=== PATIENT | male | born 1980 | race Hispanic/Latino ===

== ENCOUNTER 2020-03-17 15:38 | Inpatient (IN) | payer SELFPAY ==
[~2020-03-17] VITALS: Ht 170.2 cm; Wt 91.3 kg
--- NOTE | 2020-03-17 15:56 | Emergency Department Note ---
History of Present Illnes History of Present Illness Chief Complaint: Abdominal Complaints History of Present Illness This is a 40 year old male . Historian: Patient Arrival Mode: Car Recruiting Administrator Required: No Onset (how long ago): day(s) Radiation: Reports non-radiation Severity: mild Onset quality: sudden Duration (how long): day(s) Timing of current episode: constant Context: Denies recent illness Relieving factors: none Exacerbating factors: none Associated symptoms: Reports denies other symptoms (HERNANDO YANCEY DO) Past Medical/Family History Physician Review I have reviewed the patient's past medical and family history. Any updates have been documented here. (HERNANDO YANCEY, ) Past Medical History Recent Fever: No Clinical Suspicion of Infectio: No New/Unexplained Change in Ment: No Past Medical History: None Past Surgical History: None (HERNANDO YANCEY DO) Social History Smoking Cessation: Former smoker Counseling Performed: No Alcohol Use: Social Physically hurt or threatened: No (HERNANDO YANCEY DO) Review of Systems Review of Systems Constitutional: Reports no symptoms EENTM: Reports no symptoms Cardiovascular: Reports no symptoms Respiratory: Reports no symptoms Gastrointestinal: Reports as per HPI, Reports abdominal pain Genitourinary: Reports no symptoms Musculoskeletal: Reports no symptoms Integumentary: Reports no symptoms Neurological: Reports no symptoms Psychological: Reports no symptoms Endocrine: Reports no symptoms Hematological/Lymphatic: Reports no symptoms (HERNANDO YANCEY DO) Physical Exam Related Data Allergies: Coded Allergies: No Known Allergies (Unverified , 03/17/20) Triage Vital Signs Vital Signs Date Time Temp Pulse Resp B/P (MAP) Pulse Ox O2 Delivery O2 Flow Rate FiO2 03/17/20 15:46 98.8 110 20 131/82 98 Room Air Vital signs reviewed: Yes (HERNANDO YANCEY, ) Physical Exam CONSTITUTIONAL Constitutional: Present well-developed, Present well-nourished HENT HENT: Present normocephalic, Present atraumatic, Present oropharynx clear/ moist, Present nose normal HENT L/R: Present left ext ear normal, Present right ext ear normal EYES Eyes: Reports PERRL, Reports conjunctivae normal NECK Neck: Present ROM normal PULMONARY Pulmonary: Present effort normal, Present breath sounds normal CARDIOVASCULAR Cardiovascular: Present regular rhythm, Present heart sounds normal, Present capillary refill normal, Present normal rate GASTROINTESTINAL Abdominal: Present soft, Present bowel sounds normal, Present tender GENITOURINARY Genitourinary: Present exam deferred SKIN Skin: Present warm, Present dry MUSCULOSKELETAL Musculoskeletal: Present ROM normal NEUROLOGICAL Neurological: Present alert, Present oriented x 3, Present no gross motor or sensory deficits PSYCHOLOGICAL Psychological: Present mood/affect normal, Present judgement normal (HERNANDO YANCEY, ) Results Laboratory Lab results reviewed: Yes (HERNANDO YANCEY, ) Imaging Imaging results reviewed: Yes (HERNANDO YANCEY, ) Imaging results reviewed: Yes Impressions ct abd/pelvis IMPRESSION: 1. Enlarged appendix measuring 1 cm with adjacent inflammatory change. Findings consistent with early acute appendicitis. No evidence of perforation or abscess. 2. Patchy opacities at the lung bases could be due to atelectasis or possibly developing pneumonia in the appropriate clinical context. Signed by: Dr. True Carlson M.D. on 03/17/2020 5:50 PM Dictated By: TRUE CARLSON MD, MD (KEI NAVA MD) Assessment & Plan Medical Decision Making MDM 40 yo M arrived to the ED with complaints of RLQ pain- sign out given to Dr. Nava to f/u CT AP and dispo of pt (HERNANDO YANCEY DO) MDM pt with appendicitis and likely covid 19 viral pneumonia. i spoke with dr de la fuente, dr ibrahim, dr delgado, dr vickie dorsey. admit to covid oui inpatient bed (KEI NAVA MD) Assessment & Plan Final Impression: (1) Appendicitis (2) Suspected 2019 novel coronavirus infection (3) Viral pneumonia (KEI NAVA MD) Depart Disposition: ADMITTED Last Vital Signs Date Time Temp Pulse Resp B/P (MAP) Pulse Ox O2 Delivery O2 Flow Rate FiO2 03/17/20 15:46 98.8 110 20 131/82 98 Room Air (HERNANDO YANCEY, ) Home Meds Reported Medications Acetaminophen With Codeine (TYLENOL WITH CODEINE #3 TABLET) 1 Each Tablet, 300 MG PO Q4HR PRN for Mild Pain (1-3) or Fever>100.8, TAB 03/18/20 Ampicillin Sodium (AMPICILLIN SODIUM) 1 Gm Vial, 0.5 GM PO Q8H, VIAL 03/18/20 [immunity] No Conflict Check, 1 TAB.CHEW PO DAILY 03/17/20 Cholecalciferol (Vitamin D3) (Vitamin D3) 25 Mcg Tab.chew, 1 CAP PO DAILY 03/17/20 Echinacea (ECHINACEA HERB) 380 Mg Capsule, 760 MG PO DAILY 03/17/20 HERNANDO YANCEY DO Mar 17, 2020 15:55 KEI NAVA MD Mar 17, 2020 18:33
[2020-03-17 16:13] LABS: BASOPHILS % 0.3 % (0.0-1.0); EOSINOPHILS # (AUTO) 0.1 (0.0-0.4); EOSINOPHILS % 1.2 % (0.0-6.0); HEMATOCRIT 42.4 % (38.2-49.6); HEMOGLOBIN 14.8 g/dL (14.0-18.0); LYMPHOCYTES # (AUTO) 2.1 (1.0-3.2); MEAN CORPUSCULAR HGB CONC 34.9 g/dL (31-35); MEAN CORPUSCULAR VOLUME 88.7 fL (81-99); MONOCYTES # (AUTO) 0.8 (0.2-0.8); MONOCYTES % 7.2 % (4.4-11.3); NEUTROPHILS # (AUTO) 8.1 (2.1-6.9); NEUTROPHILS % 71.9 % (38.7-80.0); PLATELET COUNT 222 x10e3/uL (140-360); RED BLOOD COUNT 4.78 x10e6/uL (4.3-5.7); RED CELL DISTRIBUTION WIDTH 13.2 % (11.7-14.4)
[2020-03-17] MEDS ORDERED: DIATRIZOATE MEGL/DIATRIZOA SOD 30 ML BTL PO ONE (16:13)
[2020-03-17] MEDS ORDERED: SODIUM CHLORIDE 0.9% 50ML 50 ML ONE (16:13)
[2020-03-17] MEDS ORDERED: IOPAMIDOL 370 MG/ML 200 ML INFUS..BTL INJ ONE (16:13)
[2020-03-17 16:16] LABS: CLARITY,URINE CLEAR (CLEAR); COLOR,URINE YELLOW (YELLOW)
[2020-03-17 16:17] LABS: BILIRUBIN,URINE SMALL (NEGATIVE); KETONES,URINE TRACE (NEGATIVE); LEUKOCYTE ESTERASE ,URINE NEGATIVE (NEGATIVE); NITRITE,URINE NEGATIVE (NEGATIVE); PROTEIN,URINE DIPSTICK TRACE (NEGATIVE); URINE UROBILINOGEN 0.2 mg/dL (0.2 - 1)
[2020-03-17 16:27] LABS: BACTERIA,URINE RARE /HPF; EPITHELIAL CELLS,URINE FEW /LPF
[2020-03-17 16:28] LABS: ALANINE AMINOTRANSFERASE 57 IU/L (0-55); ALBUMIN 3.8 g/dL (3.5-5.0); ALKALINE PHOSPHATASE 64 IU/L (40-150); ANION GAP 10.7 mmol/L (8-16); BLOOD UREA NITROGEN 12 mg/dL (7-26); BUN/CREATININE RATIO 14 (6-25); CALCIUM 8.6 mg/dL (8.4-10.2); CARBON DIOXIDE 25 mmol/L (22-29); CHLORIDE 105 mmol/L (98-107); CREATININE, SERUM 0.84 mg/dL (0.72-1.25); EST GLOMERULAR FILTRATION RATE > 60 ML/MIN (60-); GLUCOSE 88 mg/dL (74-118); POTASSIUM 3.7 mmol/L (3.5-5.1); SODIUM 137 mmol/L (136-145)
[2020-03-17] MEDS ORDERED: KETOROLAC TROMETHAMINE 30 MG/ML VIAL IV STA (17:15)
--- NOTE | 2020-03-17 17:53 | Diagnostic Imaging Report ---
EXAM: CT Abdomen and Pelvis WITH contrast INDICATION: Right-sided abdominal pain. Decreased range of motion. Decreased appetite. Diarrhea. COMPARISON: None. TECHNIQUE: Abdomen and pelvis were scanned utilizing a multidetector helical scanner from the lung base to the pubic symphysis after administration of IV contrast. Coronal and sagittal reformations were obtained. Routine protocol was performed. Scan was performed when during portal venous phase. IV CONTRAST: 100 mL of Isovue 370 ORAL CONTRAST: None COMPLICATIONS: None RADIATION DOSE: Total DLP: 582 mGy*cm Estimated effective dose: (DLP x 0.015 x size factor) mSv CTDIvol has been reviewed. It is below the limits set by the Radiation Protocol Committee (RPC). Dose modulation, iterative reconstruction, and/or weight based adjustment of the mA/kV was utilized to reduce the radiation dose to as low as reasonably achievable. FINDINGS: LINES and TUBES: None. LOWER THORAX: Patchy opacities at the lung bases could be due to atelectasis or possibly developing pneumonia in the appropriate clinical context. HEPATOBILIARY: No focal hepatic lesions. No biliary ductal dilation. GALLBLADDER: No radio-opaque stones or sludge. No wall thickening. SPLEEN: No splenomegaly. PANCREAS: No focal masses or ductal dilatation. ADRENALS: No adrenal nodules KIDNEYS/URETERS: Kidneys enhance symmetrically. No hydronephrosis. No cystic or solid mass lesions. No stones. GI TRACT: No abnormal distention, wall thickening, or evidence of bowel obstruction. Scattered diverticulosis without evidence of diverticulitis. Enlarged appendix measuring 1 cm with adjacent inflammatory change. Findings consistent with early acute appendicitis. No evidence of perforation or abscess. PELVIC ORGANS/BLADDER: Unremarkable. LYMPH NODES: No lymphadenopathy. VESSELS: Unremarkable. PERITONEUM / RETROPERITONEUM: No free air or fluid. BONES: Unremarkable. SOFT TISSUES: Unremarkable. IMPRESSION: 1. Enlarged appendix measuring 1 cm with adjacent inflammatory change. Findings consistent with early acute appendicitis. No evidence of perforation or abscess. 2. Patchy opacities at the lung bases could be due to atelectasis or possibly developing pneumonia in the appropriate clinical context. Signed by: Dr. True Carlson M.D. on 03/17/2020 5:50 PM
[2020-03-17] MEDS ORDERED: METRONIDAZOLE 500MG/NS 100ML 100 ML IV SCH (18:30)
[2020-03-17] MEDS ORDERED: SODIUM CHLORIDE 0.9% 1000ML 1,000 ML IV SCH (18:30)
[2020-03-17] MEDS ORDERED: ONDANSETRON HCL INJ 2MG/ML 2ML 2 MG/ML VIAL IV PRN (19:00)
[2020-03-17] MEDS ORDERED: MORPHINE SULFATE INJ 4 MG/ML INJ 1ML IV PRN (19:00)
[2020-03-17] MEDS: SODIUM CHLORIDE 0.9% 1000ML 1,000 ML IV SCH (19:04)
--- NOTE | 2020-03-17 19:04 | NUR ---
report given to Davey COPELAND
[2020-03-17] MEDS ORDERED: CEFTRIAXONE SOD 2 GM/NS 100 ML 100 ML IV SCH (19:30)
--- NOTE | 2020-03-17 20:51 | Consultation ---
DATE OF CONSULTATION: Pulmonary Critical Care Consultation CHIEF COMPLAINT: Right lower quadrant pain for the past 24 hours and history of positive COVID test. HISTORY OF PRESENT ILLNESS: The patient is a 40-year-old man. In late January, he had some cough and fevers. He went to his doctor and had a test for COVID that was positive on February 28. He also received some antibiotics and a steroid shot. His symptoms subsequently resolved and he had a negative COVID tests on the 10 of March. Yesterday, he started having abdominal pain. It is subsequently localized to the right lower quadrant. He had some fevers. He came to the emergency department and had a CT scan, that showed acute appendicitis. PAST MEDICAL HISTORY: 1. History of COVID infection, that has resolved as noted above. 2. No prior respiratory problems or asthma. 3. No prior cardiac history. 4. No history of diabetes. PAST SURGICAL HISTORY: Noncontributory. ALLERGIES: THE PATIENT HAS NO KNOWN DRUG ALLERGIES. FAMILY HISTORY: The patient is no significant family history. REVIEW OF SYSTEMS: There is no headache. He has no chest pain. He is not having any neck pain. There is no shortness of breath or cough. He does have some abdominal pain, localized to the right lower quadrant. There is no vomiting. He has no nausea. He has no diarrhea. PHYSICAL EXAMINATION: VITAL SIGNS: Stable. The blood pressure is 126/92, pulse is 106, and this patient is afebrile. HEENT: Shows no facial swelling or erythema. CARDIAC: Reveals regular rate and rhythm with normal S1, S2. LUNGS: Auscultation of lungs reveals clear breath sounds bilaterally. There is no wheezing. ABDOMEN: Soft. There is some right lower quadrant tenderness. There is no rebound. There is some guarding. EXTREMITIES: Shows no leg edema or calf tenderness. There is no cyanosis or clubbing. SKIN: Shows no rashes. LABORATORY DATA: White blood cell count is 11.1 and hemoglobin is 14.8. Platelet count is 222. The BUN to creatinine ratio is normal. The other electrolytes are normal. ALT is mildly elevated at 57. Urinalysis; shows 6 to 10 white blood cells. RADIOGRAPHIC DATA: CT scan of the abdomen and pelvis shows an enlarged appendix measuring 1 cm with adjacent inflammatory changes. These findings are consistent with early appendicitis. There are some patchy opacities at the lung bases. IMPRESSION: 1. Acute appendicitis. 2. Prior COVID pneumonia, that has resolved. PLAN: 1. The patient had COVID with symptoms that started 3-1/2 weeks ago. His symptoms were resolved over 7 days ago. Clinically, his COVID has resolved and he is not infectious at this time. 2. Changes on x-ray from COVID pneumonia as well as any other pneumonia can take weeks to resolve, and do not by themselves indicate active infection. 3. The patient should proceed with appendectomy. Staff should use standard precautions with masks and [place] just as in any other patient. 4. IV antibiotics. 5. IV fluids. Yang Hedrick MD [facility]/[place] /[id number]
[2020-03-17 21:25] VITALS: BP 116/92
[2020-03-17 22:28] VITALS: BP 116/92
[2020-03-17 22:32] VITALS: BP 116/92
[2020-03-17] MEDS ORDERED: ECHINACEA HERB380 MG PO (22:40)
[2020-03-17] MEDS ORDERED: VITAMIN D325 MCG PO (22:40)
[2020-03-17] MEDS ORDERED: [UNRECOGNIZED DRUG - OTHER] PO (22:40)
--- NOTE | 2020-03-17 22:54 | NUR ---
infectious disease progress note consultation Right lower quadrant pain for the past 24 hours and history of positive COVID test. ABDOMINAL PAIN HISTORY OF PRESENT ILLNESS: The patient is a 40-year-old man. In late January, he had some cough and fevers. He went to his doctor and had a test for COVID that was positive on February 28. He also received some antibiotics and a steroid shot. His symptoms subsequently resolved and he had a negative COVID tests on the 10 of March. PATIENT WITH NO SHORTNESS OF BREATH Yesterday, he started having abdominal pain. It is subsequently localized to the right lower quadrant. He had some fevers. He came to the emergency department and had a CT scan, that showed acute appendicitis. PAST MEDICAL HISTORY: 1. History of COVID infection, that has resolved as noted above. 2. No prior respiratory problems or asthma. 3. No prior cardiac history. 4. No history of diabetes. PAST SURGICAL HISTORY: Noncontributory. ALLERGIES: THE PATIENT HAS NO KNOWN DRUG ALLERGIES. FAMILY HISTORY: The patient is no significant family history. REVIEW OF SYSTEMS: There is no headache. He has no chest pain. He is not having any neck pain. There is no shortness of breath or cough. He does have some abdominal pain, localized to the right lower quadrant. There is no vomiting. He has no nausea. He has no diarrhea. PHYSICAL EXAMINATION: PATIENT IS ALERT ORIENTED DOES NOT IN ACUTE DISTRESS VITAL SIGNS: Stable. The blood pressure is 126/92, pulse is 106, and this patient is afebrile. HEENT: Shows no facial swelling or erythema. CARDIAC: Reveals regular rate and rhythm with normal S1, S2. LUNGS: Auscultation of lungs reveals clear breath sounds bilaterally. There is no wheezing. ABDOMEN: Soft. There is some right lower quadrant tenderness. There is no rebound. There is some guarding. EXTREMITIES: Shows no leg edema or calf tenderness. There is no cyanosis or clubbing. SKIN: Shows no rashes. LABORATORY DATA: White blood cell count is 11.1 and hemoglobin is 14.8. Platelet count is 222. The BUN to creatinine ratio is normal. The other electrolytes are normal. ALT is mildly elevated at 57. Urinalysis; shows 6 to 10 white blood cells. RADIOGRAPHIC DATA: CT scan of the abdomen and pelvis shows an enlarged appendix measuring 1 cm with adjacent inflammatory changes. These findings are consistent with early appendicitis. [facility] MOUTH COVID 19 POSITIVE IN february 28 PATIENT IS NOT INFECTIOUS ANYMORE PATIENT COULD BE TRANSFERRED TO A REGULAR FLOOR WITH THE MASK ON IF SURGERY IS PLANNED IS OKAY TO PROCEED WITH SURGERY ACCORDING TO MOST RECENT [facility]bc RECOMMENDATIONS ON THIS PATIENT THE LATTER INFECTIOUS AFTER 10 DAYS
[2020-03-17] MEDS: PIPER-TAZ 3.375 GM 50 ML IV SCH (23:01)
[2020-03-18 00:35] VITALS: BP 119/86
[2020-03-18] MEDS: SODIUM CHLORIDE 0.9% 1000ML 1,000 ML IV SCH ×2 (04:09→14:02)
[2020-03-18 05:00] VITALS: BP 119/90
[2020-03-18 05:48] LABS: BASOPHILS % 0.3 % (0.0-1.0); EOSINOPHILS # (AUTO) 0.1 (0.0-0.4); EOSINOPHILS % 1.5 % (0.0-6.0); HEMATOCRIT 37.3 % (38.2-49.6); HEMOGLOBIN 13.3 g/dL (14.0-18.0); LYMPHOCYTES # (AUTO) 1.7 (1.0-3.2); LYMPHOCYTES % 22.9 % (18.0-39.1); MEAN CORPUSCULAR HGB CONC 35.7 g/dL (31-35); MEAN CORPUSCULAR VOLUME 92.6 fL (81-99); MONOCYTES # (AUTO) 0.6 (0.2-0.8); NEUTROPHILS # (AUTO) 4.9 (2.1-6.9); PLATELET COUNT 151 x10e3/uL (140-360); RED BLOOD COUNT 4.03 x10e6/uL (4.3-5.7); RED CELL DISTRIBUTION WIDTH 13.3 % (11.7-14.4)
[2020-03-18 06:13] LABS: ALANINE AMINOTRANSFERASE 63 IU/L (0-55); ALBUMIN 3.2 g/dL (3.5-5.0); ALBUMIN/GLOBULIN RATIO 0.9 (0.8-2.0); ALKALINE PHOSPHATASE 58 IU/L (40-150); ANION GAP 12.8 mmol/L (8-16); BLOOD UREA NITROGEN 11 mg/dL (7-26); BUN/CREATININE RATIO 14 (6-25); CARBON DIOXIDE 24 mmol/L (22-29); CHLORIDE 106 mmol/L (98-107); CREATININE, SERUM 0.81 mg/dL (0.72-1.25); EST GLOMERULAR FILTRATION RATE > 60 ML/MIN (60-); GLUCOSE 85 mg/dL (74-118); POTASSIUM 3.8 mmol/L (3.5-5.1); SODIUM 139 mmol/L (136-145)
[2020-03-18] MEDS: PIPER-TAZ 3.375 GM 50 ML IV SCH ×2 (06:16→14:02)
[2020-03-18 08:28] VITALS: BP 119/87
--- NOTE | 2020-03-18 08:43 | Diagnostic Imaging Report ---
ADDENDUM #1 Please see below. Signed by: Kenn Cota MD on 03/18/2020 9:01 AM ORIGINAL REPORT X-ray chest AP portable History: Appendicitis Comparison: None Findings: Central airways unremarkable. Heart size normal. Mediastinal contours unremarkable. No pleural effusion. No pneumothorax. Lung ramachandran show no focal disease. Visualized skeletal structures and upper abdomen unremarkable. Impression: No acute abnormality on this exam. Signed by: Kenn Cota MD on 03/18/2020 8:40 AM
--- NOTE | 2020-03-18 09:14 | Consultation ---
DATE OF CONSULTATION: REASON FOR CONSULTATION: Acute appendicitis. HISTORY OF PRESENT ILLNESS: The patient is a 40-year-old pleasant male who developed right lower quadrant pain approximately 2 days ago, associated with nausea. No vomiting. No fever. The pain persisted for the last 2 days and they got worse that is the reason he came to the emergency room. The patient was diagnosed with COVID in late January and was treated with what appears to be a Z-Lul and a steroid check by his primary care physician. His symptoms resolved then he had negative COVID test on March 10. However, upon admission to the hospital, his COVID test is positive now. The patient denies any respiratory symptoms, any shortness of breath, difficulty with breathing. He does have slight cough. His is sick at home with COVID. His daughter has not been tested. CT scan of the abdomen performed during this hospitalization reveals acute appendicitis. The patient has been treated with overnight antibiotics. He still has some right lower quadrant tenderness. PAST MEDICAL HISTORY: Remarkable for no previous surgery. ALLERGIES: HE HAS NO KNOWN ALLERGIES. PHYSICAL EXAMINATION: GENERAL: Reveals a 40-year-old male in no acute distress. Does complain of some right lower quadrant tenderness. He is awake and alert. HEAD, EYES, EARS, NOSE, and THROAT: Reveals no acute process. LUNGS: Clear. HEART: Reveals regular sinus rhythm. ABDOMEN: Soft with tenderness to deep palpation in the right lower quadrant. At this point, there is no rebound. LABORATORY DATA: Reveal on admission, white count of 11 and subsequently today is 7.5. Electrolytes are normal. Renal function is normal. Chest x-ray has been done and result is pending. ASSESSMENT: Acute appendicitis, positive COVID test. Clinically, the patient is stable. At this point from a pulmonary point of view, he has been evaluated by Pulmonary and feels that it is appropriate at this point to proceed with appendectomy. I have discussed the surgery as well as the alternative treatment of intravenous antibiotics. He is aware of the higher likelihood of recurrence and follow non operative surgical treatment of appendicitis. Of note is the fact that this patient apparently completed today a course of Z-Lul. He still has tenderness in the right lower quadrant. The patient wishes to proceed with appendectomy. He is aware of the potential risks. Dequan J Chris, MD [facility]/[place] /[id number]
[2020-03-18 09:37] VITALS: BP 119/87
[2020-03-18] MEDS ORDERED: ACETAMINOPHEN 325 MG TAB PO PRN (11:45)
[2020-03-18 11:54] VITALS: BP 109/91
[2020-03-18] MEDS ORDERED: BUPIVACAINE 0.25% 30ML SDV INJ ONE (12:31)
[2020-03-18] MEDS ORDERED: ONDANSETRON HCL INJ 2MG/ML 2ML 2 MG/ML VIAL IV PRN (13:15)
[2020-03-18] MEDS ORDERED: HYDROCODONE/APAP 7.5MG-325MG 1 EA TAB PO PRN (13:15)
--- NOTE | 2020-03-18 13:35 | NUR ---
GAVE PACKET OF INFORMATION WITH COMMUNITY [employer]OURCES FOR ASSISTANCE WITH LOW TO NO INCOME TO PATIENT. RESOURCES THAT PATIENT MAY BE ABLE TO FOLLOW UP UPON DISCHARGE. PT EDUCATED ON EACH RESOURCE AND UNDERSTANDING HOW TO FOLLOW UP TO SEE IF QUALIFIED FOR EACH RESOURCE.
--- NOTE | 2020-03-18 13:45 | Operative Report ---
DATE OF PROCEDURE: 03/18/2020 SURGEON: Dequan Perez MD PREOPERATIVE DIAGNOSES: Acute appendicitis, positive coronavirus disease infection. POSTOPERATIVE DIAGNOSES: Acute appendicitis, positive coronavirus disease infection. PROCEDURE PERFORMED: Laparoscopic appendectomy. CRYSTALLOGRAPHER: DONA Carvalho. ESTIMATED BLOOD LOSS: Minimal. DRAINS: None. COMPLICATIONS: None. INDICATION AND FINDINGS: The patient is a 40-year-old male admitted because of right lower quadrant pain for 48 hours duration. Patient had been diagnosed with COVID in the past, was treated. At this point, he was asymptomatic except for minor cough. His PUI COVID test was positive. A CT scan revealed changes consistent with acute appendicitis. The intraoperative findings were acute appendicitis. Preoperatively, the patient and I had a long discussion about his condition, his risks, his alternative treatment such as nonoperative versus operative, he elected to have laparoscopic appendectomy. Preoperatively, he was evaluated by both Pulmonary and Infectious Disease, who agree with the plan for laparoscopic cholecystectomy. DESCRIPTION OF PROCEDURE: With the patient lying on the operative table in the supine position after administration of general anesthesia, he was prepped and draped for laparoscopic appendectomy. Adequate precautions were taken according to the [address] protocol. The procedure was begun by establishing the pneumoperitoneum in the umbilical site after stab wound was made in that location and a saline drop test was performed and pneumoperitoneum was insufflated to 15 mm of pressure and then the 12 trocar placed in that location under direct vision with the camera. We placed a right upper quadrant 5 mm trocar as well as a right lower quadrant 5 mm trocar. We begin the laparoscopy identifying the cecum and the appendix, this was inflamed but not perforated. We went ahead and mobilized the cecum and the appendix through atraumatic forceps using two 5 mm trocars until we were able to identify the base of the appendix. We made a rent in the mesentery of the base of the appendix at the junction with the cecum and then we transected the appendiceal cecal junction, which was soft and pliable using the Endo-WU with the blue load. Then, we performed the stapling of the mesoappendix by firing two loads of the Endo-WU with the white cartridge. Detaching the appendix, we placed the appendix in an endobag and then extracted it through the umbilical port, we inspected the operative field. There was some minor oozing coming from the staple line, which persisted and that was cauterized gently after we ascertained that hemostasis was absolute. After we irrigated the right lower quadrant and there was no evidence of any more bleeding or bowel injury. We released the pneumoperitoneum carefully and closed the wounds using 0-Vicryl for the umbilical fascia, 3-0 Vicryl for the subcutaneous tissue, the skin of all the ports was closed using 5-0 subcuticular Vicryl, 0.25% Marcaine with epinephrine was given as a local block at the end of the case. The patient tolerated the procedure well and was taken to recovery room in stable condition. MD WIL Sotomayor/[place] /[id number]
[2020-03-18] MEDS ORDERED: MORPHINE SULFATE 2 MG/ML SYR 1ML IV PRN (15:00)
[2020-03-18] MEDS ORDERED: CEFTRIAXONE SOD 2 GM/NS 100 ML 100 ML IV ONE (16:00)
--- NOTE | 2020-03-18 16:10 | Progress Note ---
DATE: 03/18/2020 Medicine Progress Note SUBJECTIVE: I saw the patient postoperatively from his appendectomy. He is currently doing very well. He has very minimal pain. In fact, the patient was started on a diet. I spoke with General Surgery, Dr. Perez and he reports that the patient can be discharged later today. He is going to come and evaluate him again later this afternoon. He will notify me as well and notify the nursing staff to call me. From a COVID-19 perspective, the patient is actually doing well. Apparently, he has had the symptoms for more than 3 weeks now. Of note, he was positive for COVID-19 three weeks ago, then he retested himself last Tuesday and found to be negative, then was retested here in our facility, found to be positive. In fact, the patient is asymptomatic. He has no cough, no congestion, no fever. Of note, his symptoms are more than 3 weeks ago and he is currently doing very well from that perspective. But from a surgical perspective, if Dr. Perez clears the patient, the patient can be discharged to home. I also spoke with the food aide, Dr. Hedrick and he also cleared the patient for discharge. Prescriptions have been written for Cipro and Flagyl including Tylenol No. 3 and is placed in the chart. Once I get the final clearance, the patient can be discharged to home. The patient verbalized understanding and agrees to plan of care. I discussed with him in the event if he gets any worsening symptoms or has any pain, he is advised to come back to the ED. The patient was actually very eager to being discharged. He is actually pushing to be discharged home. Otherwise, he is doing well and he is stable at this time. MD MAR Justice/[place] /[id number]
[2020-03-18 16:34] VITALS: BP 116/75
--- NOTE | 2020-03-18 17:09 | NUR ---
patient has been cleared for discharge by Dr Perez
[2020-03-18] MEDS ORDERED: AMPICILLIN SODIU1 GM PO (17:15)
[2020-03-18] MEDS ORDERED: TYLENOL WITH C1 EACH PO (17:16)
--- NOTE | 2020-03-18 18:11 | History and Physical ---
CHIEF COMPLAINT: Abdominal pain. Positive COVID-19. HISTORY OF PRESENT ILLNESS: Information is being obtained from the consultants as well as the ED note. I came to evaluate the patient, he is currently in surgery for appendectomy. A 40-year-old male, who exhibited symptoms of cough, congestion, found to be COVID-19 positive here in the hospital, and also was complaining of right lower quadrant abdominal pain for several days, found to have positive acute appendicitis. I came to evaluate the patient in COVID unit. Currently, he is in surgery to get appendectomy. According to the nursing staff, the patient is doing well with no complaints. He has no cough, no congestion, no fever, and he is not on any oxygen. REVIEW OF SYSTEMS: Right lower quadrant abdominal pain. Unable to obtain the rest of 14-point review of systems. ALLERGIES: NO KNOWN DRUG ALLERGIES. HOME MEDICATIONS: Cholecalciferol. PAST MEDICAL HISTORY: According to the records, none. PAST SURGICAL HISTORY: Reported none. FAMILY HISTORY: Unknown. SOCIAL HISTORY: Reports no drugs, no alcohol, does not smoke. PHYSICAL EXAMINATION: VITAL SIGNS: Temperature is 98.6, pulse 104, respiratory rate 16, blood pressure 109/91, and pulse ox 99% on room air. Physical exam; the patient was currently in the OR. I am not able to examine the patient at this time. LABORATORY FINDINGS: Show white count 7.2, hemoglobin 13, hematocrit 37, and platelets of 151. Chemistry; sodium 139, potassium 3.8, chloride 106, bicarb 24, anion gap of 12, BUN is 11, creatinine is 0.81, glucose is 85. Lactic acid is 1.2. LFTs; calcium is 8, total bilirubin 0.9, AST 36, ALT 63, total protein is 6.6. Urinalysis; shows 6 to 10 wbc's, 6 to 10 rbc's. Coronavirus was found to be positive. MICROBIOLOGY: Blood cultures are pending. IMAGING STUDIES: CT abdomen and pelvis shows an enlarged appendix measuring 1 cm adjacent with inflammatory changes consistent with acute appendicitis. Patchy opacities in the lung bases could be atelectasis, possibly developing pneumonia. Chest x-ray shows no acute abnormalities on the exam. IMPRESSION: 1. COVID-19 pneumonia, currently asymptomatic, currently on room air. 2. Acute appendicitis. PLAN: At this time, the patient was in the OR when I came to evaluate the patient. He is given an appendectomy. General Surgery was consulted and he is already in the OR. We will continue with IV antibiotics, pain control, and IV fluids. As for his COVID-19, Pulmonary Critical Care has been consulted. He is on IV antibiotic therapy. The patient is not hypoxic. He is on room air. There is not any indication for steroids at this time. After this, we will have him on a clear liquid diet, advance as tolerated. Potential discharge tomorrow if the patient is stable and he is not hypoxic and cleared by the consultants. MD MAR Justice/FLAKITO /[id number]
--- NOTE | 2020-03-19 08:54 | Progress Note ---
DATE: SUBJECTIVE: is doing very well. He is not on oxygen. REVIEW OF SYSTEMS: HEENT: Negative. PULMONARY: Negative. CARDIAC: Negative. PHYSICAL EXAMINATION: GENERAL: He is currently alert and oriented. VITAL SIGNS: Stable, afebrile. HEENT: He is not icteric. NECK: Supple. CHEST: Clear. HEART: S1 and S2. ABDOMEN: Soft. IMPRESSION: Appendicitis status post appendectomy. From Infectious Disease point of view, he is doing very good. He can be discharged home. Really no treatment for his COVID, but the patient is not infectious 10 days since the onset of the symptoms, discussed this with him. He still need to wear mask and observe social distance. He understood that completely. Stable from Infectious Disease point of view to be discharged. No need to be in droplet isolation. MD ARTEMIO Le/MODEloisa /[id number]
--- NOTE | 2020-03-19 13:12 | Discharge Summary ---
FINAL DISCHARGE DIAGNOSES: 1. Acute appendicitis, status post laparoscopic appendectomy. 2. Asymptomatic COVID-19. CONSULTANTS: ID, Pulmonary, and General Surgery. PHYSICAL EXAMINATION: VITAL SIGNS: Temperature is 98.7, pulse 106, respiratory rate is 20, blood pressure 116/75, and pulse ox 100% on room air. LABORATORY FINDINGS: Show white count was 7.2, hemoglobin 13, hematocrit 37, and platelets of 151. Chemistry; sodium 139, potassium 3.8, chloride 106, bicarb 24, anion gap of 12, BUN is 11, creatinine is 0.81, and glucose is 85. Lactic acid is 1.2. Calcium is. Total bilirubin is 0.9, AST 34, ALT 57, and alkaline phosphatase 58. Total protein 6.6 and albumin 3.2. Urinalysis negative. Coronavirus was positive. MICROBIOLOGY: Blood cultures are no growth. IMAGING STUDIES: CT abdomen and pelvis shows just enlarged appendix 1 cm adjacent with inflammatory changes consistent with acute appendicitis. There are also some patchy opacities of the lung bases, which could be atelectasis, possibly developing pneumonia in appropriate clinical contact and then we had a chest x-ray shows no acute abnormality. HOSPITAL COURSE: A 40-year-old male, comes into the ED with complaints of right lower quadrant abdominal pain, found to have an acute appendicitis seen on CT imaging findings. General Surgery was consulted. The patient was also found to have COVID-19 pneumonia. The patient reportedly was positive about 3 weeks ago with mild cough and congestion, but since then he has been doing well with no issues. He continues to be positive despite being asymptomatic. The patient underwent surgery, status post laparoscopic appendectomy performed by General Surgery on 03/18/2020. Postprocedurally, the patient was doing well. In fact, the patient wanted to be discharged. General Surgery came and rounded on him on the second round in the evening, in which the patient was tolerating diet well with no complaints. The patient was cleared for discharge by General Surgery. As for his COVID-19, Pulmonary and ID were consulted. They evaluated the patient. The patient was doing well. He was not hypoxic. He was on room air. In fact, he was asymptomatic. The patient was cleared for discharge by all consultants. On the day of discharge, vital signs were stable, labs reviewed and stable. The patient is seen and evaluated, and examined thoroughly on the day of discharge. No other complaints. The patient verbalized understanding and agrees to plan of care to follow up accordingly as an outpatient with primary care physician in 1 week, ID in 2 weeks for repeat COVID-19 testing and see General Surgery in 7 to 10 days. MEDICATIONS: See medication reconciliation form. DISPOSITION: Home. CONDITION: Stable. DIET: Heart healthy. In the event of any worsening symptoms, the patient was advised to come back to the ED for further evaluation. Discharge summary took greater than 35 minutes. MD MAR Justice/MODL /[id number]
== END 2020-03-18 17:37 | disposition home or self-care (01) | DRG 341 ==
LOC: ER 15:50 → ERHOLD 20:07 → IMCU 21:15
PROVIDERS: ADMIT Internal Medicine; ATTEND Internal Medicine
PROC: 0DTJ4ZZ Resection of Appendix, Percutaneous Endoscopic Approach (ICD-10-PCS; principal; 2020-03-18 10:30)
DX: K35.80 Unspecified acute appendicitis (principal); U07.1 COVID-19; Z87.891 Personal history of nicotine dependence; Z86.19 Personal history of other infectious and parasitic diseases
CPT/HCPCS: 36415; 71045; 74177; 80053; 81001; 83605; 85025; 87040; 88304; 93005; 99284; C1766; J0696; J1885; J2543; J7030; Q9967; U0002